=== PATIENT | female | born 1960 | race Native Hawaiian/Other Pacific Islander ===

== ENCOUNTER 2021-02-18 22:37 | Emergency (ER) | payer OTHER ==
[~2021-02-18] VITALS: Ht 157.5 cm; Wt 95.3 kg
[2021-02-19 00:47] LABS: PLATELET COUNT 431 K/uL (152-353)
[2021-02-19 00:48] LABS: POTASSIUM 2.8 mmol/L (3.6-5.2)
[2021-02-19 01:15] VITALS: BP 180/78; TEMP 98
== END 2021-02-19 01:15 | disposition home or self-care (01) ==
LOC: ED 22:37
PROVIDERS: Hospitalist
DX: L03.115 Cellulitis of right lower limb (principal); S80.861A Insect bite (nonvenomous), right lower leg, initial encounter; W57.XXXA Bitten or stung by nonvenomous insect and other nonvenomous arthropods, initial encounter; Y92.89 Other specified places as the place of occurrence of the external cause
CPT/HCPCS: 36415; 80053; 83605; 85027; 87040; 96365; 96375; 99284; J1885; J2405; J2930; J3370

== ENCOUNTER 2021-03-20 15:24 | Emergency (ER) | payer OTHER ==
[~2021-03-20] VITALS: Ht 157.5 cm; Wt 115.7 kg
[2021-03-20 15:39] VITALS: TEMP 99
[2021-03-20 16:29] LABS: PLATELET COUNT 368 K/uL (152-353)
[2021-03-20 16:33] LABS: POTASSIUM 3.7 mmol/L (3.6-5.2)
[2021-03-20 17:54] VITALS: BP 123/73
== END 2021-03-20 17:57 | disposition home or self-care (01) ==
LOC: ED 15:24
PROVIDERS: Hospitalist
DX: U07.1 COVID-19 (principal); J06.9 Acute upper respiratory infection, unspecified; F17.210 Nicotine dependence, cigarettes, uncomplicated
CPT/HCPCS: 80048; 85027; 87635; 87651; 99283; U0003

== ENCOUNTER 2021-08-20 10:44 | Outpatient (CLI) | payer OTHER | END 2021-08-20 19:52 | disposition home or self-care (01) | LOC: RAD 10:44 | PROVIDERS: ATTEND Nurse Practitioner Family | DX: M54.2 Cervicalgia (principal); M54.50 Low back pain, unspecified; M54.6 Pain in thoracic spine ==